=== PATIENT | female | born 1950 | race African-American/Black ===

== ENCOUNTER 2016-09-21 12:57 | Emergency (ER) | payer OTHER ==
[~2016-09-21] VITALS: Ht 160 cm; Wt 119.3 kg
[~2016-09-21 12:57] MED LIST: ADV100/50; AMLODIPINE BES2.5 M1; LIPITOR40 MG; LOSARTAN POTASS25 M1; METFORMIN ER500 M1; PROVENTIL0.09 MG/A1; SINGULAIR4 MG
[2016-09-21 20:16] VITALS: BP 147/81
== END 2016-09-21 20:16 | disposition home or self-care (01) ==
LOC: ED 12:57
DX: S22.31XA Fracture of one rib, right side, initial encounter for closed fracture (principal); M79.7 Fibromyalgia; I10 Essential (primary) hypertension; E11.9 Type 2 diabetes mellitus without complications; E66.9 Obesity, unspecified; J45.909 Unspecified asthma, uncomplicated; D86.9 Sarcoidosis, unspecified; Z90.49 Acquired absence of other specified parts of digestive tract; Z98.890 Other specified postprocedural states; Z79.899 Other long term (current) drug therapy; X50.0XXA Overexertion from strenuous movement or load, initial encounter; Y93.89 Activity, other specified; Y99.8 Other external cause status; Y92.39 Other specified sports and athletic area as the place of occurrence of the external cause
CPT/HCPCS: 94150; J1100